=== PATIENT | female | born 1965 | race Caucasian/White ===

== ENCOUNTER 2018-07-08 10:38 | Day surgery (SDC) | payer OTHER ==
[~2018-07-08] VITALS: Ht 157.5 cm; Wt 57.0 kg
[2018-07-08] VITALS (13 sets, daily range): BP systolic 109–128; BP diastolic 58–77; PULSE 79–96; RESP 15–30; Ht 157.5 cm; Wt 57.0 kg
[~2018-07-08 10:38] MED LIST: CEFAZOLIN 1 GM INJ ONE; CEFAZOLIN 2 GM/50 ML (PMX) 50 ML IVPB SCH; DEXAMETHASONE 4 MG/ML 5 ML INJ ONE; SOD CHLORIDE 0.9% 1,000 ML IV SCH
[2018-07-08] MEDS ORDERED: FENTAnyl 50 MCG/ML VIAL ONE (11:37)
[2018-07-08] MEDS ORDERED: MIDAZOLAM 1 MG/ML 2 ML INJ ONE (11:38)
[2018-07-08] MEDS ORDERED: ONDANSETRON 4 MG INJ ONE (11:38)
[2018-07-08] MEDS ORDERED: SUCCINYLCHOLINE CHLORIDE 100 MG/5 ML SYG IV ONE (11:39)
[2018-07-08] MEDS ORDERED: LIDOCAINE 2% (SDV) 5 ML INJ ONE (11:39)
[2018-07-08] MEDS ORDERED: PROPOFOL 20 ML ONE (11:39)
--- NOTE | 2018-07-08 13:18 | PREAC ---
Date/Time of Note Date/Time of Note DATE: 07/08/18 TIME: 13:17 Anesthesia Eval and Record Evaluation Time Pre-Procedure Interview DATE: 07/08/18 TIME: 13:17 Age 52 Sex female NPO: 8 hrs Preoperative diagnosis thyroid mass Planned procedure thyroidectomy Past Medical History Past Medical History: Includes GI: GERD Surgery & Anesthesia Issues No known issue Meds Anticoagulation: No Beta Brionna within 24 hr: No Reason Beta Brionna not given: Pt. not on B-Brionna No Active Prescriptions or Reported Meds Current Medications Sodium Chloride 1,000 ml @ 75 mls/hr [id number] IV ; Start 07/08/18 at 06:00; Stop 07/08/18 at 16:00 Cefazolin Sodium/ Dextrose 50 ml @ 100 mls/hr PREOP IVPB ; Start 07/08/18 at 06:00; Stop 07/08/18 at 16:00 Meds reviewed: Yes Allergies Coded Allergies: No Known Allergy (Unverified , 07/08/18) Allergies Reviewed: Yes Labs/Studies Labs Reviewed: Reviewed by anesthesiologist test: Negative Studies: ECG Pre-procedure Exam Last vitals Vital Signs Date Temp Pulse Resp B/P (MAP) Pulse Ox O2 O2 Flow FiO2 Time Delivery Rate 07/08/18 98.6 79 16 128/77 99 12:00 (94) Airway: Adequate mouth opening, Adequate thyromental dist Mallampati: Mallampati III Teeth: Normal Lung: Normal Heart: Normal ASA Physical Status ASA physical status: 2 Emergency: None Planned Anesthetic General/MAC: ETT Planned Pain Management Parenteral pain med, Local by surgeon Pre-operative Attestations Prior to commencing anesthesia and surgery, the patient was re-evaluated, there was verification of: *The patient's identity *The results of appropriate recent lab work and preoperative vital signs *The above evaluation not changing prior to induction *Anesthetic plan, risk benefits, alternative and complications discussed with patient/family; questions answered; patient/family understands, accepts and wishes to proceed. CLEVELAND GAMBOA MD Jul 08, 2018 13:18
--- NOTE | 2018-07-08 13:21 | HPN ---
Date/Time of Note Date/Time of Note DATE: 07/08/18 TIME: 13:21 Interval H&P Admission Note Pt. seen H&P reviewed: No system changes GLADYS MCCALL MD Jul 08, 2018 13:21
[2018-07-08] MEDS ORDERED: LEVALBUTEROL (NEB) 1.25 MG/0.5 ML AMP HHN PRN (13:30)
[2018-07-08] MEDS ORDERED: ONDANSETRON 4 MG INJ IV PRN ×2 (13:30→15:30)
[2018-07-08] MEDS ORDERED: MEPERIDINE 25 MG INJ IV PRN (13:30)
[2018-07-08] MEDS ORDERED: HYDROmorphONE 1 MG/5 ML IV SYRINGE IV PRN ×2 (13:30)
[2018-07-08] MEDS ORDERED: FENTAnyl 50 MCG/ML VIAL IV PRN ×2 (13:30)
[2018-07-08] MEDS ORDERED: IPRATROPIUM (NEB) 0.5 MG/2.5 ML AMP HHN PRN (13:30)
[2018-07-08] MEDS ORDERED: LORAZEPAM 2 MG INJ IV PRN (13:30)
[2018-07-08] MEDS ORDERED: LABETALOL HCL 20MG INJ IV PRN (13:30)
[2018-07-08] MEDS ORDERED: DIPHENHYDRAMINE 50 MG INJ IV PRN (13:30)
[2018-07-08] MEDS ORDERED: hydrALAzine 20 MG INJ IV PRN (13:30)
[2018-07-08] MEDS ORDERED: MIDAZOLAM 1 MG/ML 2 ML INJ IV PRN (13:30)
[2018-07-08] MEDS ORDERED: BUPIVACAINE 0.5%/EPI (SDV) 30 ML INJ ONE (13:51)
--- NOTE | 2018-07-08 15:25 | OPR ---
Date/Time of Note Date/Time of Note DATE: 07/08/18 TIME: 15:16 Operative Report Procedure Date: Jul 08, 2018 Preoperative Diagnosis Right thyroid nodule Postoperative Diagnosis Right thyroid nodule Operation/Procedure Performed Right thyroid lobectomy Surgeon see signature line Rodeo Performer Last Loya MD Anesthesia Type: general Anesthesiologist: CLEVELAND GAMBOA MD Estimated Blood Loss: minimal Transfusion none Specimen Right thyroid lobe Grafts/Implants none Complications none Pt Condition Post Procedure: stable Disposition: PACU Indications Patient is a 52-year-old female with a one-year history of a large rig ht thyroid nodule. An ultrasound which was performed showed a large right thyroid nodule with solid components. FNA and Affirma study showed benign characteristics. The patient was scheduled for right thyroid lobectomy given its large size. All risks and benefits of the procedure including, but not limited to: Wound infection, excessive bleeding, postoperative seroma/hematoma formation requiring evacuation, injury to the superior laryngeal nerves and recurrent laryngeal nerves which may lead to hoarseness of voice or bilateral vocal cord paralysis requiring tracheostomy, injury to the parathyroid glands with resultant hypocalcemia, possible need for further surgeries, etc. were all explained to the patient in full detail. Patient fully understood and wished to proceed with the procedure. Informed consent was obtained. Procedure Description The patient was brought to the operating room and placed supine on the operating table. Bilateral sequential compression devices were placed on both lower extremities and a dose of broad-spectrum perioperative intravenous antibiotics was given. After the induction of smooth general endotracheal anesthesia the patient's head was extended using shoulder rolls and the neck and upper chest were prepped and draped in the standard surgical fashion. After performance of the surgical timeout a collar incision was made in the neck 2 fingerbreadths above the sternal notch using a 15 blade scalpel. Incision was carried down through the skin and dermis using Bovie electrocautery. The platysma muscle was identified and incised. Platysmal flaps were then raised superiorly to the level of the thyroid cartilage and inferiorly to the sternal notch. The anterior jugular veins were identified and were noted to be scarred near the midline. They were both transected using the harmonic scalpel. A Jensen retractor was placed for adequate exposure. The strap muscles were then incised in their midline. The thyroid capsule was identified. The right sternothyroid muscle was noted to be densely adhered to the thyroid capsule. It was tediously dissected off of the thyroid. Using blunt dissection the right lobe of the thyroid was then delivered into the field. A nerve monitor was used at all times to monitor for the recurrent laryngeal nerve. Using the hand-held harmonic device and blunt dissection the superior thyroid vessels were isolated and transected using the harmonic scalpel device. The middle thyroid vein was also dissected and transected as were the inferior thyroid vessels. All dissection and ligation of major thyroid vascular supply was done close to the thyroid capsule to prevent devascularization of the parathyroid glands and recurrent laryngeal nerve injury. The anterior attachments of the right thyroid lobe to the trachea at the ligament of [place] were also transected using the harmonic scalpel as was the isthmus. The right lobe of the thyroid was then passed off the field as specimen. Marking sutures were used to jamil the isthmus and lower pole. The recurrent laryngeal nerve on the right side was identified and its preservation was confirmed using the nerve monitor. Hemostasis was then inspected for and noted to be adequate. Wound cavity was irrigated with warm normal saline and the irrigant returned clear. Fibrillar was placed in the cavity to aid in further hemostasis. The strap muscles were then reapproximated in the midline using a r unning 3-0 Vicryl suture. The platysmal muscle was reapproximated using running 3-0 Vicryl sutures. 0.5% Marcaine was then infiltrated around the skin of the incision site. The skin was then reapproximated using a running subcuticular 4-0 Monocryl suture. Incision was cleaned. Steri-Strips and sterile pressure dressing was applied. The patient was then awoken from anesthesia and tr ansported to the recovery room in stable condition. All counts were correct at the end the case 2. GLADYS MCCALL MD Jul 08, 2018 15:25
[2018-07-08] MEDS ORDERED: HYDROCODONE/APAP (5/325) TAB PO PRN ×2 (15:30)
[2018-07-08] MEDS ORDERED: morphine 2 MG INJ IV PRN (15:30)
--- NOTE | 2018-07-08 16:58 | PAC ---
Date/Time of Note Date/Time of Note DATE: 07/08/18 TIME: 16:58 Post-Anesthesia Notes Post-Anesthesia Note Last documented vital signs Vital Signs Date Temp Pulse Resp B/P (MAP) Pulse Ox O2 O2 Flow FiO2 Time Delivery Rate 07/08/18 88 20 124/64 100 Room Air 16:18 (84) 07/08/18 6.0 15:43 07/08/18 98.5 15:28 Activity: WNL Respiratory function: WNL Cardiovascular function: WNL Mental status: Baseline Pain reasonably controlled: Yes Hydration appropriate: Yes Nausea/Vomiting absent: Yes CLEVELAND GAMBOA MD Jul 08, 2018 16:58
== END 2018-07-08 17:41 | disposition home or self-care (01) ==
LOC: SDS 10:38
PROVIDERS: ATTEND Surgery
DX: E04.1 Nontoxic single thyroid nodule (principal)
CPT/HCPCS: 60220; 84703; 88307; J0690; J1100; J2250; J2405; J3010; Z7512; Z7610